=== PATIENT | male | born 1960 | race Caucasian/White ===

== ENCOUNTER 2017-12-19 16:02 | Emergency (ER) | payer OTHER ==
[2017-12-19 16:31] VITALS: BP 144/104
--- NOTE | 2017-12-19 16:58 | UC ---
Complaint Male HPI - HPI Summary HPI Summary: 57 yo male endorses that he developed the fairly acute onset of pain and swelling "behind left testicle" that started a week ago while doing heavy lifting at work. He has been babying it this week at work and not doing as much lifting Pain persists no UTI symptoms no urethral D/C no n/v/d - History of Current Complaint Chief Complaint: UCLowerExtremity Stated Complaint: WC - GROIN PAIN Time Seen by Provider: 12/19/17 16:24 Hx Obtained From: Patient Onset/Duration: Sudden Onset, Lasting Days Timing: Constant Severity Initially: Moderate Severity Currently: Moderate Pain Intensity: 5 Pain Scale Used: 0-10 Numeric Location: Testicle - "behind left testicle Character: Colicy - achying Aggravating Factor(s): Nothing Alleviating Factor(s): Other - touch/lifting Associated Signs And Symptoms: Positive: Negative - Allergies/Home Medications Allergies/Adverse Reactions: Allergies Allergy/AdvReac Type Severity Reaction Status Date / Time No Known Allergies Allergy Verified 12/19/17 16:28 PMH/Surg Hx/FS Hx/Imm Hx Previously Healthy: Yes - Surgical History Surgical History: Yes Surgery Procedure, Year, and Place: shoulder surgery-[facility]. umbilical hernia surgery - Family History Known Family History: Positive: Hypertension Negative: Diabetes - Social History Alcohol Use: Occasionally Substance Use Type: None Smoking Status (MU): Heavy Every Day Tobacco Smoker Review of Systems Constitutional: Negative Skin: Negative Eyes: Negative ENT: Negative Respiratory: Negative Cardiovascular: Negative Gastrointestinal: Negative Genitourinary: Other - pain posterior to left testicle Motor: Negative Neurovascular: Negative Musculoskeletal: Negative Neurological: Negative Psychological: Negative Is Patient Immunocompromised?: No All Other Systems Reviewed And Are Negative: Yes Physical Exam Triage Information Reviewed: Yes Appearance: Well-Appearing, No Pain Distress, Well-Nourished Vital Signs: Initial Vital Signs Temp 98.6 F 12/19/17 16:24 Pulse 94 12/19/17 16:24 Resp 17 12/19/17 16:24 BP 144/104 12/19/17 16:24 Pulse Ox 97 12/19/17 16:24 Vital Signs Reviewed: Yes Eyes: Positive: Conjunctiva Clear ENT: Positive: Hearing grossly normal. Negative: Nasal congestion, Nasal drainage, Trismus, Muffled voice, Hoarse voice Neck: Positive: Supple Respiratory: Positive: Lungs clear, Normal breath sounds, No respiratory distress, No accessory muscle use Cardiovascular: Positive: RRR, No Murmur Abdomen Description: Positive: Nontender, No Organomegaly. Negative: CVA Tenderness (R), CVA Tenderness (L) Male Genital Exam: Positive: Normal Genitalia, No Hernia, Epididymal Tenderness - left. Negative: Erythema, Hernia Mass, Inguinal Tenderness, Lesions, Scrotum Tenderness (R), Scrotum Tenderness (L), Testicular Tenderness (R), Testicular Tenderness (L), Urethral Discharge Musculoskeletal: Positive: ROM Intact, No Edema Neurological: Positive: Alert Psychological Exam: Normal Skin Exam: Normal Complaint Male Course/Dx - Differential Dx/Diagnosis Provider Diagnoses: left epididymitis Discharge - Sign-Out/Discharge Documenting (check all that apply): Discharge/Admit/Transfer - Discharge Plan Condition: Stable Disposition: HOME Prescriptions: DOXYcycline CAP(*) [DOXYcycline 100MG CAP(*)] 100 mg PO BID #14 cap Patient Education Materials: Epididymitis (ED) Referrals: ANGELINA Massey [Primary Care Provider] - 2 Weeks (for recheck BP) Additional Instructions: I suggest you get aleve and take 2 twice daily with food for pain Your BP was elevated here I suggest you get it rechecked in a couple of weeks with your MD you were also spilling some glucose in your urine You may need fasting blood work to check for diabetes Wear sunscreen while taking doxy RECHECK HERE IN 3-4 DAYS If not improving you may need referral to a urologist - Billing Disposition and Condition Condition: STABLE Disposition: HOME
== END 2017-12-19 17:09 | disposition home or self-care (01) ==
LOC: UCCORT 16:02
DX: N45.1 Epididymitis (principal); F17.210 Nicotine dependence, cigarettes, uncomplicated
CPT/HCPCS: 81003; 87491; 87591; 99202; G0463